=== PATIENT | female | born 1985 | race Caucasian/White ===

== ENCOUNTER 2023-08-01 04:50 | Emergency (ER) | payer BC ==
[~2023-08-01] VITALS: Ht 157.5 cm; Wt 47.6 kg
[2023-08-01] MEDS ORDERED: IV NS 1000 ML 1,000 ML IV ONE ×2 (05:00→05:15)
[2023-08-01 05:14] LABS: BASOPHILS # (AUTO) 0.1 K/UL (0.0-0.2); EOSINOPHILS # (AUTO) 0.1 K/uL (0.0-0.7); HEMATOCRIT 35.4 % (31.2-41.9); LYMPHOCYTES # (AUTO) 1.9 K/uL (0.8-4.8); LYMPHOCYTES % (AUTO) 36.3 % (20.5-51.5); MEAN CORPUSCULAR HEMOGLOBIN 30.3 uug (24.7-32.8); MEAN CORPUSCULAR HGB CONC 34 g/dL (32.3-35.6); MEAN CORPUSCULAR VOLUME 89.2 fL (75.5-95.3); MONOCYTES # (AUTO) 0.5 K/uL (0.1-1.30); NEUTROPHILS # (AUTO) 2.6 K/uL (1.8-8.9); NEUTROPHILS % (AUTO) 50.7 % (38.5-71.5); PLATELET COUNT (AUTO) 232 K/uL (179-408); RED BLOOD CELL COUNT(AUTO) 3.97 MIL/uL (3.63-4.92); RED CELL DISTRIBUTION WIDTH 13.9 % (12.3-17.7); WHITE BLOOD COUNT (AUTO) 5.2 K/uL (3.8-11.8)
[2023-08-01] MEDS ORDERED: ASPIRIN 325 MG TABLET ONE (05:15)
[2023-08-01] MEDS ORDERED: DIAZEPAM 10 MG/2 ML DISP.SYRIN ONE (05:15)
[2023-08-01] MEDS ORDERED: DIAZEPAM 10 MG/2 ML DISP.SYRIN IV ONE (05:15)
[2023-08-01] MEDS ORDERED: CITA20TA19 PO (05:17)
[2023-08-01 05:18] LABS: DIFFERENTIAL COMMENT 1
[2023-08-01 05:37] LABS: CALCIUM 8.7 mg/dL (8.5-10.1); CARBON DIOXIDE 27 mmol/L (21-32); CHLORIDE 100 mmol/L (98-107); CREATININE 0.7 mg/dL (0.6-1.3); GLUCOSE 104 mg/dL (74-106); POTASSIUM 3.7 mmol/L (3.5-5.1); SODIUM SERUM 135 mmol/L (136-145); UREA NITROGEN, BLOOD 13 mg/dL (7-18)
[2023-08-01 07:20] VITALS: BP 121/80; TEMP 98.2; O2SAT 98
[2023-08-01] MEDS ORDERED: ASPIRIN EC 325 MG TABLET.DR PO SCH (09:00)
== END 2023-08-01 07:21 | disposition home or self-care (01) ==
LOC: ER 04:53
DX: F14.90 Cocaine use, unspecified, uncomplicated (principal); R00.2 Palpitations; Z79.899 Other long term (current) drug therapy
CPT/HCPCS: 99285; 96374; 71045; 80048; 85025; 84484; 36415; 93005; J3360; J7040; A4606; A4663